=== PATIENT | male | born 1965 | race Caucasian/White ===

== ENCOUNTER 2021-10-05 00:30 | Day surgery (SDC) | payer OTHER, SELFPAY ==
[2021-09-24 12:09] VITALS: BMI 43.9
--- NOTE | 2021-10-03 12:55 | P.PNAN_ITS ---
Anes - Initial Pre Proc Eval Procedure: Operation Date: 10/05/21 11:30 Proposed Procedures p Screening Colonoscopy - Alex Wang MD Date/Time: 10/03/21 12:55 Surgeon: Alex Wang MD Pre Op Diagnosis: neoplasm screening Patient Data Age: 56 Gender: M Height: 1.73 m Weight: 131 kg Allergies Allergy/AdvReac Type Severity Reaction Status Date / Time No Known Allergies Allergy Verified 10/05/21 09:13 Home Medications Medication Instructions Recorded Confirmed Type irbesartan 300 mg tablet 300 mg PO DAILY #90 tablet 04/26/21 09/24/21 Rx atorvastatin 20 mg tablet 20 mg PO DAILY #90 tablet 07/27/21 09/24/21 Rx levothyroxine 50 mcg tablet 50 mcg PO DAILY #90 tablet 09/14/21 09/24/21 Rx Patient hx anesthesia problems: none Family hx anesthesia problems: none Results Review: All pre-operative results and documents have been reviewed as part of the pre-operative evaluation. [facility] Past Medical History Medical History (Updated 10/03/21 @ 12:55 by Stephan Gamboa DO) Essential (primary) hypertension Hyperlipidemia Hypothyroidism Family History Family History Mother Hypertension Family history of elevated blood lipids Sibling Hypertension Father Patient's father is in good health Social History Social History Smoking status: Former smoker Tobacco type: cigarettes Second hand tobacco smoke exposure: Yes Smoking end date: 07/18/04 Alcohol intake: current Drinks per week: 2 Substance use type: does not use Living arrangements: with family Spiritual care concerns: No Anes - Eval Final PreProcedure Day of Procedure 10/03/21 12:55 Patient weight: morbidly obese Heart: regular rate and rhythm Lungs: clear to auscultation and normal air movement Airway: Mallampati scale class II Neurological: alert and oriented Last oral intake: >/= 8 hours ASA classification: III Emergent: no Anesthetic plan: proceed Anesthesia type and monitoring: general GIVS and standard monitoring Results Review: All pre-operative results and documents have been reviewed as part of the pre-operative evaluation. Informed Consent: The patient's anesthetic plan and its attendant risks and benefits were discussed with the patient/family/POA. Questions were solicited and answers provided to the satisfaction of the patient/family/POA.
[2021-10-05 09:15] VITALS: BP 158/72; PULSE 67; RESP 18; TEMP 36.3; O2SAT 98
[2021-10-05] MEDS: LACTATED RINGERS 1,000 ML 150 ML IV CONT (09:16)
--- NOTE | 2021-10-05 09:34 | PM.HPGS ---
History of Present Illness History of Present Illness Consent: Risks, benefits, and alternatives have been discussed and questions answered. Patient agrees to proceed with procedure. Chief complaint: neoplasm screening Narrative: Darion Modi is a 56 year old male here for colonoscopy, last one with polyps in 2017. Review of Systems Constitutional: Constitutional: Denies headache(s) and Denies weakness Eyes: Eyes: Denies blurry vision ENT: Reports Normal hearing present, Denies headache(s) and Denies neck pain Cardiovascular: Cardiovascular: Denies chest pain and Denies dyspnea Respiratory: Respiratory: Denies dyspnea Gastrointestinal: Gastrointestinal: Reports no additional gastrointestinal complaints Genitourinary: Genitourinary: Denies dysuria Musculoskeletal: Musculoskeletal: Denies neck pain Integumentary/Breasts: Skin/Breast: Denies dry skin Neurologic: Reports Normal hearing present, Denies headache(s) and Denies weakness Psychiatric: Psychiatric: Denies anxiety Endocrine: Endocrine: Denies change in body appearance Hematologic/Lymphatic: Hematologic/Lymphatic: Denies easy bleeding Allergic/Immunologic: Allergic/Immunologic: Denies urticaria PMFSH Past Medical History Medical History (Updated 10/05/21 @ 09:34 by Alex Wang MD) Adenomatous colon polyp Essential (primary) hypertension Hyperlipidemia Hypothyroidism Family History Family History Mother Hypertension Family history of elevated blood lipids Sibling Hypertension Father Patient's father is in good health Social History Social History Smoking status: Former smoker Tobacco type: cigarettes Second hand tobacco smoke exposure: Yes Smoking end date: 07/18/04 Alcohol intake: current Drinks per week: 2 Substance use type: does not use Living arrangements: with family Spiritual care concerns: No Meds Home Medications and Allergies Home Medications Medication Instructions Recorded Confirmed Type irbesartan 300 mg tablet 300 mg PO DAILY #90 tablet 04/26/21 09/24/21 Rx atorvastatin 20 mg tablet 20 mg PO DAILY #90 tablet 07/27/21 09/24/21 Rx levothyroxine 50 mcg tablet 50 mcg PO DAILY #90 tablet 09/14/21 09/24/21 Rx Allergies Allergy/AdvReac Type Severity Reaction Status Date / Time No Known Allergies Allergy Verified 10/05/21 09:13 Vital Signs Vital Signs - 24 hr 10/05/21 09:15 Temperature 97.3 F L Pulse Rate 67 Respiratory Rate 18 Blood Pressure 158/72 H Pulse Oximetry 98 Exam Const: General: comfortable and no acute distress HENMT: General nose exam: Normal nares present Eyes: General: appearance normal, both eyes and all related structures Neck: Neck: no JVD Resp: Auscultation: clear to auscultation bilaterally Cardio: Rate: regular rate Rhythm: regular rhythm GI: Inspection: non-distended GI Palp: Yes Soft to palpation Skin: General skin exam: normal color Neuro: General: gait normal Speech: normal speech Extrem: General: normal to inspection Psych: Mental Status: mental status grossly normal Assessment and Plan Assessment and plan (1) Adenomatous colon polyp: Code(s): D12.6 - Benign neoplasm of colon, unspecified Status: Acute Assessment and Plan: colonoscopy
[2021-10-05 09:57] VITALS: BP 105/66; PULSE 59; RESP 24; O2SAT 94
[2021-10-05 10:07] VITALS: BP 128/78; PULSE 52; RESP 19; O2SAT 100
[2021-10-05 10:17] VITALS: BP 133/84; PULSE 50; RESP 18; O2SAT 100
== END 2021-10-05 10:30 | disposition home or self-care (01) ==
PROVIDERS: PCP Internal Medicine; Visit Provider Internal Medicine Gastroenterology
PROC: 0DJD8ZZ Inspection of Lower Intestinal Tract, Via Natural or Artificial Opening Endoscopic (ICD-10-PCS; CPT 45378; principal; 2021-10-05 11:30)
DX: Z12.11 Encounter for screening for malignant neoplasm of colon (principal); D12.0 Benign neoplasm of cecum; D12.3 Benign neoplasm of transverse colon; K57.30 Diverticulosis of large intestine without perforation or abscess without bleeding; K64.8 Other hemorrhoids; I10 Essential (primary) hypertension; E78.5 Hyperlipidemia, unspecified; E03.9 Hypothyroidism, unspecified; Z87.891 Personal history of nicotine dependence; E66.9 Obesity, unspecified; Z68.33 Body mass index [BMI] 33.0-33.9, adult
CPT/HCPCS: 45380; 45385; 88305; J2001; J2704; J7120

== ENCOUNTER 2022-08-09 09:51 | Outpatient (CLI) | payer OTHER, SELFPAY ==
--- NOTE | ~2022-08-09 | XR_ITS ---
Right foot Technique: Standing AP and lateral views were obtained. Clinical History: Ankylosing spondylitis Findings: No acute fracture or dislocation is seen. Osseous alignment is anatomic. Moderate osteoarth ritis of the first metatarsophalangeal joint noted. Soft tissues are unremarkable. Impression: Moderate osteoarthritis of the first metatarsophalangeal joint. Reviewed, dictated and finalized at location . RVISOR MACHINE SETTER Impression: Moderate osteoarthritis of the first metatarsophalangeal joint.
--- NOTE | ~2022-08-09 | XR_ITS ---
EXAMINATION:XR cervical spine 4-5V DATE: 08/09/2022 10:29 INDICATION: Ankylosing spondylitis of unspecified site since spine TECHNIQUE: AP, lateral, lateral swimmers and odontoid views of the cervical spine are provided. COMPARISON: None FINDINGS: Alignment is normal. Odontoid is intact. Normal atlantoaxial interval with mild osteoarthritis. Vert ebral body heights and disc heights appear relatively preserved however there are solidly bridging sy ndesmophytes extending from C2 through the visualized midthoracic spine along with osseous fusion acr oss many of the bilateral cervical facet joints consistent with provided history of ankylosing spondy litis. No evident fracture. Prevertebral soft tissues are normal. Visualized portions of the upper germán ngs are clear. IMPRESSION: 1. Solid bridging syndesmophytes extend from C2 through the visualized mid thoracic spine as well as fusion across multiple bilateral cervical facet joints consistent with provided history of ankylosing spondylitis. Reviewed, dictated and finalized at location B. STANT PROPERTY MANAGER IMPRESSION: 1. Solid bridging syndesmophytes extend from C2 through the visualized mid thor acic spine as well as fusion across multiple bilateral cervical facet joints co nsistent with provided history of ankylosing spondylitis.
--- NOTE | ~2022-08-09 | XR_ITS ---
EXAMINATION: XR lumbar spine min 4V, XR sacroiliac joints min 3V DATE: 08/09/2022 10:29 INDICATION: Ankylosing spondylitis of unspecified sites in the spine. TECHNIQUE: 1. Anteroposterior, lateral, and bilateral oblique views of the lumbar spine, and cone-down lateral v iew of the lumbosacral junction were obtained. 2. AP and left and right oblique views of the sacroiliac joints were obtained. COMPARISON: CT dated 02/08/2007 FINDINGS: Alignment is normal. Vertebral body heights are normal with multilevel fusion with solid bridging syn desmophytes extending from at least T12-S1. There is also solid ankylosis across the bilateral sacroi liac joints. There also appears to be osseous fusion across several of the lumbar facet joints and be tween some of the spinous processes. These findings have been present since 2006 and are consistent w ith provided history of ankylosing spondylitis. Lumbar disc spaces appear relatively preserved with m ild disc height loss at T10-T11, T11-T12, T12-L1 and L4-L5. Mild left and moderate right hip osteoart hritis. Osteitis pubis with chronic erosions at both sides of the pubic symphysis. IMPRESSION: 1. 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 2. Mild left and moderate right hip osteoarthritis. 3. Chronic osteitis pubis. Reviewed, dictated and finalized at location B. ITIZER IMPRESSION: 1. Chronic ankylosis of the lumbar spine and bilateral sacralized joints consis tent with provided history of ankylosing spondylitis. 2. Mild left and moderate right hip osteoarthritis. 3. Chronic osteitis pubis.
--- NOTE | ~2022-08-09 | XR_ITS ---
EXAMINATION: HAND-ANA MARIA ARTHRITIS 3+VIEWS DATE: 08/09/2022 10:29 INDICATION: Ankylosing spondylitis TECHNIQUE: Posteroanterior, lateral, and oblique views of the left and of the right hands as well as a ballcatchers view of both hands were obtained. COMPARISON: None. FINDINGS: Bone alignment is normal at the bilateral hands and wrists. No fractures. Mild to moderate polyarticu lar osteoarthritis characterized by nonuniform joint space narrowing and small marginal osteophytes w ith relatively symmetric pattern involving the bilateral distal radioulnar, triscaphe, first carpomet acarpal and multiple metacarpal and interphalangeal joints. This most severe at the bilateral third m etacarpophalangeal and bilateral first interphalangeal and second and third distal interphalangeal dmitriy ints. No erosions to suggest an inflammatory arthritis. IMPRESSION: 1. Symmetric distribution of typical pattern of mild to moderate polyarticular osteoarthritis at the bilateral hands and wrists. Reviewed, dictated and finalized at location B. N PIPEFITTER
--- NOTE | ~2022-08-09 | XR_ITS ---
Left foot Technique: Standing AP and lateral views were obtained. Clinical History: Ankylosing spondylitis Findings: No acute fracture or dislocation is seen. Osseous alignment is anatomic. Moderate osteoarth ritis of the first metatarsophalangeal joint noted. Soft tissues are unremarkable. Impression: Moderate osteoarthritis of the first metatarsophalangeal joint. Reviewed, dictated and finalized at location . OGEN PLANT OPERATIONS MANAGER Impression: Moderate osteoarthritis of the first metatarsophalangeal joint.
[2022-08-09 10:57] LABS: Hematocrit 45.5 % (42.0-52.0); Hemoglobin 15.8 g/dL (14.0-18.0); Mean Corpuscular HGB Conc 34.7 g/dl (32-36); Mean Corpuscular Hemoglobin 30.8 pg (26-34); Mean Corpuscular Volume 88.7 fl (80-100); Mean Platelet Volume 10.5 fl (7.4-10.4); Platelet Count Result 274 k/mm3 (150-375); Red Blood Count 5.13 M/mm3 (4.6-6.20); Red Cell Distribution Width 13.4 % (11.5-14.5); White Blood Count 8.5 K/mm3 (4.5-10.0)
[2022-08-09 11:13] LABS: Rheumatoid Factor < 8.6 IU/ML (<12)
[2022-08-09 11:19] LABS: Alanine Aminotransferase 30 U/L (6-50); Albumin Level 4.7 g/dL (3.5-5.1); Alkaline Phosphatase 88 U/L (38-126); Anion Gap 7 mmol/L (8-16); Aspartate Amino Transferase 31 U/L (17-59); Bilirubin,Total 1.4 mg/dL (0.2-1.3); Blood Urea Nitrogen 13 mg/dL (9-20); CRP 0.6 mg/dL (<1.0); Calcium 9.1 mg/dL (8.4-10.2); Carbon Dioxide 24 mmol/L (22-30); Chloride 104 mmol/L (98-107); Estimated Glomerular Filt Rate > 60; Glucose 106 mg/dL (65-110); Potassium 3.9 mmol/L (3.4-5.0); Sodium 135 mmol/L (137-145); Uric Acid 4.1 mg/dL (3.5-8.5)
[2022-08-09 11:38] LABS: Erythrocyte Sedimentation Rate 10 mm/hr (0-20)
[2022-08-09 12:32] LABS: Hepatitis B Surface Antigen Negative (Negative)
[2022-08-09 12:50] LABS: Hepatitis B Surface Anti Res Negative; Hepatitis C Virus Antibody Negative (Negative)
[2022-08-12 21:31] LABS: Anti Cyclic Citrullinated Pept <16 Units (<20)
[2022-08-12 22:31] LABS: ANCA Screen Negative (Negative); Myeloperoxidase Ab <1.0 AI (<1.0); Proteinase-3 Ab <1.0 AI (<1.0); S cerevisiae Ab (IgA) 4.4 U (<=20.0); S cerevisiae Ab (IgG) 5.9 U (<=20.0)
[2022-08-20 14:20] LABS: Reference Lab Test Result NEGATIVE
== END 2022-08-09 09:52 | disposition home or self-care (01) ==
PROVIDERS: PCP Internal Medicine; Visit Provider Internal Medicine
DX: M45.9 Ankylosing spondylitis of unspecified sites in spine (principal); M16.0 Bilateral primary osteoarthritis of hip; M19.071 Primary osteoarthritis, right ankle and foot; M19.072 Primary osteoarthritis, left ankle and foot
CPT/HCPCS: 36415; 72050; 72110; 72202; 73130; 73620; 80053; 84550; 85027; 85652; 86036; 86038; 86140; 86200; 86430; 86671; 86706; 86803; 87340

== ENCOUNTER 2022-10-11 15:45 | Outpatient (CLI) | payer OTHER, SELFPAY ==
--- NOTE | ~2022-10-11 | MR_ITS ---
MRI of the lumbar spine Clinical History: Back pain Technique: Axial T2-weighted images, and sagittal T1-weighted, T2-weighted, and T2 fat-sat images wer e acquired. Findings: There is no fracture or subluxation of the lumbar spine. Vertebral bodies maintain normal h eight and alignment. No suspicious bone marrow signal abnormality evident. At L1-L2, there is mild facet arthropathy. No disc bulge or herniation. No spinal canal stenosis or n eural foraminal narrowing. At L2-L3, there is facet arthropathy, but no disc bulge or herniation. No spinal canal stenosis or ne ural foraminal narrowing. At L3-L4, there is facet arthropathy, but no disc bulge or herniation. No spinal canal stenosis or ne ural foraminal narrowing. At L4-L5, there is facet arthropathy, but no disc bulge or herniation. No spinal canal stenosis or ne ural foraminal narrowing. At L5-S1, there is facet arthropathy, but no disc bulge or herniation. No spinal canal stenosis or ne ural foraminal narrowing. Paravertebral soft tissues are unremarkable. Questionable 1 cm solid right renal mass. Impression: Minimal degenerative change in the lumbar spine, as above. Questionable 1 cm solid right renal mass. Consider pre and postcontrast renal MR to confirm or exclud e solid renal mass. Reviewed, dictated and finalized at location M. Impression: Minimal degenerative change in the lumbar spine, as above. Questionable 1 cm solid right renal mass. Consider pre and postcontrast renal M R to confirm or exclude solid renal mass.
--- NOTE | ~2022-10-11 | MR_ITS ---
EXAMINATION: MR sacroiliac cade wo con DATE: 10/11/2022 16:57 INDICATION: Low back pain. Bilateral hip pain. TECHNIQUE: Magnetic resonance imaging (MRI) of the sacroiliac joints was performed without intravenou s contrast. COMPARISON: Sacroiliac joint radiographs 08/09/2022 FINDINGS: Bone alignment is normal. No fracture. There is ankylosis of the sacroiliac joints. Partially visuali zed is severe right hip osteoarthritis and moderate left hip osteoarthritis. There is moderate fatty atrophy of the erector spinae muscles bilaterally. IMPRESSION: 1. Ankylosis of the sacroiliac joints. 2. Severe right hip osteoarthritis and moderate left hip osteoarthritis. Reviewed, dictated and finalized at location A.
== END 2022-10-11 15:46 | disposition home or self-care (01) ==
PROVIDERS: PCP Internal Medicine; Visit Provider Internal Medicine
DX: M06.9 Rheumatoid arthritis, unspecified (principal); M16.0 Bilateral primary osteoarthritis of hip
CPT/HCPCS: 72158; 72197; A9577

== ENCOUNTER 2022-10-21 13:42 | Outpatient (CLI) | payer OTHER, SELFPAY ==
--- NOTE | ~2022-10-21 | MR_ITS ---
EXAMINATION: MR abdomen wo/w con DATE: 10/21/2022 14:50 INDICATION: Kidney mass. TECHNIQUE: Magnetic resonance imaging (MRI) of the abdomen was performed without and with 20 mL Multi Gary intravenous contrast. COMPARISON: Lumbar spine MRI 10/11/2022, CT abdomen and pelvis 02/08/2007 FINDINGS: The liver, spleen, gallbladder, pancreas, and adrenal glands are normal. There are cysts in the kidne ys measuring up to 3.4 cm on the right. There are hemorrhagic cysts in the kidneys measuring up to 7 mm. There is cortical thinning of left kidney. There are no dilated loops of bowel. There is divertic ulosis of the colon without evidence of diverticulitis. There are no pathologically enlarged lymph no justin. There is no free intraperitoneal fluid. IMPRESSION: 1. Benign cysts in the kidneys. Reviewed, dictated and finalized at location A.
== END 2022-10-21 13:43 | disposition home or self-care (01) ==
LOC: ANHIMG 13:47
PROVIDERS: PCP Internal Medicine; Visit Provider Internal Medicine
DX: N28.1 Cyst of kidney, acquired (principal)
CPT/HCPCS: 74183; A9577

== ENCOUNTER 2023-03-07 09:44 | Outpatient (CLI) | payer OTHER, SELFPAY ==
[2023-03-07 10:43] LABS: Hematocrit 41.8 % (42.0-52.0); Hemoglobin 14.1 g/dL (14.0-18.0); Mean Corpuscular HGB Conc 33.7 g/dl (32-36); Mean Corpuscular Hemoglobin 30.7 pg (26-34); Mean Corpuscular Volume 90.9 fl (80-100); Mean Platelet Volume 10.9 fl (7.4-10.4); Platelet Count Result 234 k/mm3 (150-375); Red Cell Distribution Width 13.2 % (11.5-14.5); White Blood Count 6.1 K/mm3 (4.5-10.0)
[2023-03-07 10:49] LABS: Appearance Urine Clear (Clear); Bacteria Urine None Seen /hpf; Bilirubin Urine Negative (Negative); Blood Urine Trace (Negative); Color Urine Yellow (Yellow); Glucose Urine UA Negative (Negative); Ketones Urine Negative (Negative); Leukocyte Esterase Ur Negative LEU/UL (Negative); Nitrate Urine Negative (Negative); Non Pathogenic Casts 0-2; Protein Urine Negative (Negative); RBC Urine 0-2 /hpf (0-2); Specific Grav Ur 1.025 (1.001-1.035); Squamous Epithelial Cell Urine None seen /hpf (Few); WBC Urine 0-5 /hpf; pH Urine 5.5 (5.0-9.0)
[2023-03-07 10:53] LABS: Cholesterol 133 mg/dL (0-200); HDL Direct 39 mg/dL; Triglycerides 86 mg/dL (<150)
[2023-03-07 10:59] LABS: Alanine Aminotransferase 25 U/L (6-50); Albumin Level 4.3 g/dL (3.5-5.1); Alkaline Phosphatase 79 U/L (38-126); Anion Gap 6 mmol/L (8-16); Aspartate Amino Transferase 30 U/L (17-59); Bilirubin,Total 1.5 mg/dL (0.2-1.3); Blood Urea Nitrogen 16 mg/dL (9-20); CRP < 0.5 mg/dL (<1.0); Calcium 8.6 mg/dL (8.4-10.2); Carbon Dioxide 25 mmol/L (22-30); Chloride 106 mmol/L (98-107); Estimated Glomerular Filt Rate > 60; Glucose 95 mg/dL (65-110); Potassium 3.9 mmol/L (3.4-5.0); Sodium 137 mmol/L (137-145)
[2023-03-07 11:03] LABS: Add Urine Microscopic? YES
[2023-03-07 11:05] LABS: LDL Cholesterol Direct 75 mg/dL
[2023-03-07 11:15] LABS: Free T4 Free Thyroxine 0.89 ng/mL (0.78-2.19)
[2023-03-07 11:16] LABS: Erythrocyte Sedimentation Rate 15 mm/hr (0-20)
[2023-03-07 11:26] LABS: Prostate Specific Antigen 3.9 ng/mL (< OR = 4.0)
[2023-03-07 12:02] LABS: Folic Acid 15.2 ng/mL (2.76->20)
== END 2023-03-07 09:45 | disposition home or self-care (01) ==
PROVIDERS: PCP Internal Medicine; Referring Provider Internal Medicine; Visit Provider Physician Assistant
DX: Z00.00 Encounter for general adult medical examination without abnormal findings (principal); M45.9 Ankylosing spondylitis of unspecified sites in spine; M19.90 Unspecified osteoarthritis, unspecified site; E03.9 Hypothyroidism, unspecified; Z12.5 Encounter for screening for malignant neoplasm of prostate
CPT/HCPCS: 36415; 80053; 80061; 81001; 82607; 82746; 84153; 84439; 84443; 85027; 85652; 86140; G0103

== ENCOUNTER 2023-04-18 07:19 | Outpatient (CLI) | payer OTHER, SELFPAY ==
[2023-04-18 16:20] LABS: Prostate Specific Antigen 0.6 ng/mL (< OR = 4.0)
== END 2023-04-18 07:20 | disposition home or self-care (01) ==
LOC: ANHLAB 07:19
PROVIDERS: PCP Internal Medicine; Visit Provider Physician Assistant
DX: R97.20 Elevated prostate specific antigen [PSA] (principal)
CPT/HCPCS: 36415; 84153

== ENCOUNTER 2023-11-01 08:00 | Emergency (ER) | payer OTHER, SELFPAY ==
[2023-11-01 08:11] VITALS: BP 158/95; PULSE 62; RESP 16; TEMP 36.8; O2SAT 100
--- NOTE | 2023-11-01 08:33 | ED.SKABFB ---
HPI - Skin/Abscess/Foreign Bdy General Chief complaint: Skin/Abscess/Foreign Body Stated complaint: RED SPOT ON LEG Time Seen by Provider: 11/01/23 08:36 Source: patient and RN notes reviewed Mode of arrival: ambulatory Limitations: no limitations History of Present Illness HPI narrative: 58-year-old male presents with concern for red spot on his right thigh. He reports he noticed it this morning in the shower. Reports it feels tight and slightly tender. Reports it is not itchy. He denies any known injury. Denies any known insect bite. He denies general malaise, fever, body aches, chills, sweats. Reports he was working in a basement this weekend. complaint: discoloration Related Data Allergies Allergy/AdvReac Type Severity Reaction Status Date / Time No Known Allergies Allergy Verified 11/01/23 08:21 Review of Systems Review of Systems: CONSTITUTIONAL: Denies malaise, chills, sweats, or fever. EYES: Denies redness, or discharge. ENT: Denies rhinorrhea, congestion, swollen lips, swollen tongue CARDIOVASCULAR: Denies chest pain, palpitations, or edema. RESPIRATORY: Denies cough or dyspnea. GASTROINTESTINAL: Denies abdominal pain, nausea, vomiting SKIN: Reports redness to the right thigh. MUSCULOSKELETAL: Denies joint pain or myalgia. NEUROLOGIC: Denies headache. All systems reviewed & are unremarkable except as noted in HPI and below PMFSH Past Medical History Medical History Adenomatous colon polyp Essential (primary) hypertension Hyperlipidemia Hypothyroidism Surgical History Surgical History No pertinent past surgical history Family History Family History Mother Hypertension Family history of elevated blood lipids Sibling Hypertension Father Patient's father is in good health Social History Social History Smoking status: Former smoker Tobacco type: cigarettes Second hand tobacco smoke exposure: Yes Smoking end date: 07/18/04 Alcohol intake: current Drinks per week: 2 Substance use type: does not use Lack of Transportation: No Lack of Food: Never True Current Housing: I Have Housing Concerned About Future Housing: No Difficulty Paying Gas/Electric Bills: No Difficulty Paying for Meds: No Currently Unemployed: No Education: Decline to Answer Difficulty w/ Childcare or Family Care: No Living arrangements: with family Occupation/Education: occupation Gender identity (if verbalized by the patient): Male Spiritual care concerns: No Comments At time of signature, agree with nursing past medical, surgical, social and family history. There is no relevant family history pertinent to the presenting complaint Exam Narrative: GENERAL: Well-appearing, well-nourished, and in no acute distress. HEAD: Normocephalic, atraumatic. EYES: PERRLA, conjunctivae clear, and EOMI. ENT: Mucous membranes moist. Oropharynx without edema, erythema or lesions. NECK: Supple. No lymphadenopathy CHEST: Clear to auscultation. No respiratory distress. HEART: Regular rate and rhythm. SKIN: Warm, dry. 7 x 6 cm a flat patch of erythematous macules, slightly warm a without any central scab or fluctuation noted, slightly tender. NEURO: Alert and oriented x3. PSYCH: Normal mood and affect Course Course Emergency Course: Patient is aware of diagnosis, understands and agrees to treatment plan. Anticipatory guidance given. Patient agrees to follow-up as directed and is aware of reasons to seek care at the emergency department. Portions of this record may have been created with voice recognition software Level of Care: Express Care Visit Vital Signs Vital signs: Vital Signs Temperature 98.2 F 11/01/23 08:11 Pulse Rate 62 11/01/23 08:11 Respiratory Rate
== END 2023-11-01 08:47 | disposition home or self-care (01) ==
PROVIDERS: Emergency Provider Nurse Practitioner; PCP Internal Medicine
DX: S70.361A Insect bite (nonvenomous), right thigh, initial encounter (principal); W57.XXXA Bitten or stung by nonvenomous insect and other nonvenomous arthropods, initial encounter; I10 Essential (primary) hypertension; E78.5 Hyperlipidemia, unspecified; E03.9 Hypothyroidism, unspecified; Z87.891 Personal history of nicotine dependence
CPT/HCPCS: 99213; G0463

== ENCOUNTER 2024-05-09 15:35 | Outpatient (CLI) | payer OTHER, SELFPAY ==
--- NOTE | 2024-05-09 15:51 | ECG_ITS ---
Test Date: 2024-05-09 16:00:46 Measurements Intervals [place] Rate: 61 P: 35 SD: 165 QRS: 35 QRSD: 102 T: 12 QT: 387 QTc: 390 Interpretive Statements SINUS RHYTHM INFERIOR MYOCARDIAL INFARCTION , PROBABLY OLD [40+ ms Q WAVE AND/OR ST/T ABNORMALITY IN II/aVF] No previous ECG available for comparison Electronically Signed On 05-10-2024 09:38:16 CDT by Marimar Grubbs M.D.
[2024-05-09 16:09] LABS: Basophils Absolute Auto 0.1 K/mm3 (0.0-0.1); Basophils Percent Auto 0.6 % (0.2-1.2); Eosinophils Absolute Auto 0.2 K/mm3 (0-0.3); Eosinophils Percent Auto 1.9 % (0-4.4); Hematocrit 45.8 % (42.0-52.0); Hemoglobin 14.8 g/dL (14.0-18.0); Immature Granulocyte Absolute 0.02 K/mm3 (0.00-0.031); Immature Granulocyte Percent A 0.2 % (0-0.5); Lymphocytes Absolute Auto 2.41 K/mm3 (0.9-3.2); Lymphocytes Percent Auto 29.2 % (18.3-44.2); Mean Corpuscular HGB Conc 32.3 g/dl (32-36); Mean Corpuscular Hemoglobin 29.8 pg (26-34); Mean Corpuscular Volume 92.3 fl (80-100); Mean Platelet Volume 10.8 fl (7.4-10.4); Monocytes Absolute Auto 0.7 K/mm3 (0.1-0.6); Monocytes Percent Auto 8.5 % (2.6-8.5); Neutrophils Absolute Auto 4.9 K/mm3 (1.3-6.7); Neutrophils Percent Auto 59.6 % (45.5-73.1); Platelet Count Result 223 k/mm3 (150-375); Red Blood Count 4.96 M/mm3 (4.6-6.20); Red Cell Distribution Width 13.7 % (11.5-14.5); White Blood Count 8.3 K/mm3 (4.5-10.0)
[2024-05-09 16:19] LABS: Anion Gap 9 mmol/L (4-12); Blood Urea Nitrogen 25 mg/dL (9-20); Calcium 9.6 mg/dL (8.4-10.2); Carbon Dioxide 27 mmol/L (22-30); Chloride 104 mmol/L (98-107); Estimated Glomerular Filt Rate > 60; Glucose 96 mg/dL (65-110); Potassium 4.1 mmol/L (3.4-5.0); Sodium 140 mmol/L (137-145)
[2024-05-09 16:44] LABS: Add Urine Microscopic? YES; Appearance Urine Cloudy (Clear); Bacteria Urine None Seen /hpf; Bilirubin Urine Negative (Negative); Blood Urine Negative (Negative); Color Urine Yellow (Yellow); Glucose Urine UA Negative (Negative); Ketones Urine Negative (Negative); Leukocyte Esterase Ur Negative LEU/UL (Negative); Nitrate Urine Negative (Negative); Non Pathogenic Casts 0-2; Protein Urine Trace mg/dL (Negative); Specific Grav Ur 1.023 (1.001-1.035); Squamous Epithelial Cell Urine None Seen /hpf (Few); WBC Urine 0-5 /hpf (0-3); pH Urine 7.5 (5.0-9.0)
== END 2024-05-09 15:36 | disposition home or self-care (01) ==
LOC: ANHLAB 15:37
PROVIDERS: PCP Internal Medicine; Visit Provider Nurse Practitioner Family
DX: E03.9 Hypothyroidism, unspecified (principal); I10 Essential (primary) hypertension; M16.9 Osteoarthritis of hip, unspecified; R94.31 Abnormal electrocardiogram [ECG] [EKG]
CPT/HCPCS: 36415; 80048; 81001; 85025; 93005

== ENCOUNTER 2024-05-21 09:39 | Outpatient (CLI) | payer OTHER, SELFPAY ==
--- NOTE | ~2024-05-21 | NM_ITS ---
EXAMINATION: NM dougie stress w perfusion DATE: 05/21/2024 12:08 INDICATION: Abnormal electrocardiogram. TECHNIQUE: Rest images were obtained following intravenous administration of 9.44 mCi Tc99m tetrofosm in (Myoview). The patient was infused intravenously with Lexiscan (regadenoson). Then, 29 mCi Tc99m t etrofosmin (Myoview) was administered intravenously, and stress images were obtained. Data was recons tructed into short axis and horizontal and vertical long axis SPECT images. Gated SPECT images were a lso obtained. COMPARISON: None. FINDINGS: There is a small, mild, fixed perfusion defect involving apical lateral and mid inferolater al segments of left ventricle, consistent with ischemia. No fixed component to suggest infarct. Ther e is no segmental wall motion abnormality. Left ventricular ejection fraction measures 56%. IMPRESSION: 1. Small area of mild ischemia involving apical lateral and mid inferolateral segments of left ventri gina. 2. Normal left ventricular ejection fraction measuring 56%. Reviewed, dictated and finalized at location A. IMPRESSION: 1. Small area of mild ischemia involving apical lateral and mid inferolateral s egments of left ventricle. 2. Normal left ventricular ejection fraction measuring 56%.
--- NOTE | 2024-05-21 10:40 | EST_ITS ---
Patient Info Name: Darion Modi Age: 59 years : 1965 Gender: Male Ht: 68 in Wt: 213 lbs BSA: 2.18 m2 HR: 51 bpm BP: 148 / 89 mmHg Exam Date: 05/21/2024 10:51 AM Exam Location: Echo Lab Patient Status: Outpatient Admit Date: 05/21/2024 Staff Ordering Physician: Aníbal Wilburn DO Attending Provider: Aníbal Wilburn DO Exercise Technologist: Nellie Correia RDCS Exercise Physician: Paul Gonzalez DO Exam Type: CA stress dougie w NM Study Info A regadenoson stress test was performed. Summary 1. 1. Negative lexiscan stress test for ischemic ST changes by ECG criteria. 2. 2. Baseline hypertension. 3. 3. Nuclear scan to follow and will be reported separately. Please correlate with it. 4. 4. Patient informed of the above results. Protocol: Lexiscan Stress ECG Details Stage: REST Duration (min): 3 min : 50 sec HR (bpm): 50 SBP (mmHg): 148 DBP (mmHg): 89 Stage: REST Duration (min): 16 min : 34 sec HR (bpm): 57 SBP (mmHg): 148 DBP (mmHg): 89 Stage: STAGE 1 Duration (min): 1 min : 0 sec HR (bpm): 80 SBP (mmHg): 177 DBP (mmHg): 102 Stage: RECOVERY Duration (min): 1 min : 0 sec HR (bpm): 73 SBP (mmHg): 177 DBP (mmHg): 102 Stage: RECOVERY Duration (min): 2 min : 0 sec HR (bpm): 70 SBP (mmHg): 177 DBP (mmHg): 102 Stage: RECOVERY Duration (min): 3 min : 0 sec HR (bpm): 67 SBP (mmHg): 177 DBP (mmHg): 102 Stage: RECOVERY Duration (min): 4 min : 0 sec HR (bpm): 62 SBP (mmHg): 176 DBP (mmHg): 94 Stage: RECOVERY Duration (min): 5 min : 0 sec HR (bpm): 65 SBP (mmHg): 172 DBP (mmHg): 96 Stage: RECOVERY Duration (min): 5 min : 19 sec HR (bpm): 64 SBP (mmHg): 172 DBP (mmHg): 96 Rest HR: 57 bpm Peak HR: 83 bpm Rest Sys BP: 148 mmHg Peak Sys BP: 177 mmHg Max Pred HR: 161 bpm % Max Pred HR: 52 % Target HR: 137 bpm Max RPP: 14,691 bpm*mmHg Termination Reason: Completed protocol Cardiac Symptoms: Shortness of breath Total Time: 1 min : 0 sec Rest [place] BP: 89 mmHg Peak [place] BP: 102 mmHg Total Dose: 0.4 mg Resting ECG Sinus bradycardia. Stress ECG No ST changes. Arrhythmias None. Report Signatures
== END 2024-05-21 09:40 | disposition home or self-care (01) ==
LOC: ANHCARD 09:43
PROVIDERS: PCP Internal Medicine; Visit Provider Internal Medicine
DX: R94.31 Abnormal electrocardiogram [ECG] [EKG] (principal)
CPT/HCPCS: 78452; 93017; A9502; J2785

== ENCOUNTER 2024-11-28 07:15 | Outpatient (RCR) | payer OTHER, SELFPAY ==
[2024-09-25 15:37] VITALS: PULSE 83
== END 2024-11-28 08:30 | disposition home or self-care (01) ==
LOC: ANHCPREHAB 07:15
PROVIDERS: PCP Internal Medicine; Visit Provider Internal Medicine Cardiovascular Disease
DX: Z98.61 Coronary angioplasty status (principal)
CPT/HCPCS: 93798

== ENCOUNTER 2025-01-31 09:00 | Outpatient (RCR) | payer OTHER, SELFPAY ==
--- NOTE | 2024-12-07 12:30 | OPREHPOC ---
Outpatient Therapy Plan of Care This is a Multidisciplinary Plan of Care that may contain components documented by all disciplines (PT, OT, and ST.) PT Problem 1 PT Problem #1 Knowledge Deficit PT Goal 1 Goal / Goal Update Independent with HEP Target Visit 4 PT Goal 2 Goal / Goal Update Report no pain greater than 2/10 for 2 consecutive weeks Target Visit 10 PT Problem 2 PT Problem #2 Impaired Range of Motion PT Goal 1 Goal / Goal Update 1. Improve R hip abduction motion to 40 degrees 2. Improve R hip flexion to 90 degrees Target Visit 10 PT Problem 3 PT Problem #3 Impaired Strength PT Goal 1 Goal / Goal Update 1. Improve R hip flexion to 4/5 to improve foot clearance with gait 2. Improve R hip abduction strength to 4/5 to improve lateral stability with gait and ADLs Target Visit 10 PT Problem 4 PT Problem #4 Impaired Gait PT Goal 1 Goal / Goal Update Patient will ambulate with independence and kedar stride Target Visit 10
--- NOTE | 2024-12-07 12:30 | PTOPEVAL1 ---
Assessment and note entered by Cooper Vanegas, PT Evaluation Information Assessment Status Evaluation Diagnosis M16.11, S/P Left HAYDEE ICD-10 Condition Codes (PT) Pain in right hip M25.551 Onset 11/29/24 Subjective Information Reports that he is still having some of the pain that he had pre op with hip rotation and flexion butt is getting better. He is not currently driving but was prior. He was unable to full weight bear prior to surgery and now feels he can. Was having severe pain for well over a year. He was ambulating independently prior to surgery but he is now using a quad cane this date. He has a history of ankylosing spondylitis. Reported Pain Level Pain Score 2: Self Report Assessment PT Clinical Summary Patient presents with gait deficits, weakness, and poor hip ROM following total hip arthroplasty. Patient guarded with motion art this time but improved with exercise. Will benefit from skilled therapy to address these deficits to progress to independent fluid functional motion. Plan of Care Interventions Gait Training,Manual Therapy,Neuro Re-education, Therapeutic Activities,Therapeutic Exercise PT Services Indicated Yes Treatment Frequency and 2x/week for 10 visits Duration These treatments will address the objective and functional deficits as defined above. The patient will be advanced safely and appropriately in order for the patient to progress towards his/her prior level of function. Additional exercises will be introduced and as well as a comprehensive home exercise program upon discharge, if needed, ?to ensure carryover of functional gains achieved in the clinic. This treatment plan has been reviewed and agreement upon by the patient.
--- NOTE | 2024-12-25 15:05 | OTOPEVAL1 ---
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 Left worse than right. He is right handed. 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 Difficulties with work tasks due to repetitive pinching and using tools. He states he has been off work since Aug due to vacation, heart stent surgery, and hip replacement. He states his hand pain on a daily basis is 3-4/10 with ADLs. He also reports a long history of carpal tunnel syndrome. He has custom wrist orthotics that he wears at night. 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 He presents with functional ROM, however pain with ROM of the thumbs as well as pain with functional gripping and pinching tasks. Fabricated a custom left thumb spica to support the 1st CMC and began education on joint protection techniques. Issued active ROM of the wrists and thumbs. Continued follow up indicated for use of modalities, manual therapy, right side orthosis, continued joint protection education, therapeutic exercise, and HEP progression to facilitate reduced pain and improved functional use of bilateral hands. Plan of Care Interventions Therapeutic Exercise,Manual Therapy,Therapeutic Activities,Hot Pack/Cold Pack,Check Out for Orthotic/Prosthetic,Ultrasound,Paraffin OT Services Indicated Yes Treatment Frequency and 1x/week for 6 visits Duration These treatments will address the objective and functional deficits as defined above. The patient will be advanced safely and appropriately in order for the patient to progress towards his/her prior level of function. Additional exercises will be introduced and as well as a comprehensive home exercise program upon discharge, if needed, ?to ensure carryover of functional gains achieved in the clinic. This treatment plan has been reviewed and agreement upon by the patient.
--- NOTE | 2024-12-25 15:05 | OPREHPOC ---
Outpatient Therapy Plan of Care This is a Multidisciplinary Plan of Care that may contain components documented by all disciplines (PT, OT, and ST.) PT Problem 1 PT Problem #1 Knowledge Deficit PT Goal 1 Goal / Goal Update Independent with HEP Target Visit 4 PT Goal 2 Goal / Goal Update Report no pain greater than 2/10 for 2 consecutive weeks Target Visit 10 PT Problem 2 PT Problem #2 Impaired Range of Motion PT Goal 1 Goal / Goal Update 1. Improve R hip abduction motion to 40 degrees 2. Improve R hip flexion to 90 degrees Target Visit 10 PT Problem 3 PT Problem #3 Impaired Strength PT Goal 1 Goal / Goal Update 1. Improve R hip flexion to 4/5 to improve foot clearance with gait 2. Improve R hip abduction strength to 4/5 to improve lateral stability with gait and ADLs Target Visit 10 PT Problem 4 PT Problem #4 Impaired Gait PT Goal 1 Goal / Goal Update Patient will ambulate with independence and kedar stride Target Visit 10 OT Problem 1 OT Problem #1 Knowledge Deficit OT Goal 1 Goal / Goal Update 1. Patient to be independent with instructed materials. Target Visit 6 OT Problem 2 OT Problem #2 Pain OT Goal 1 Goal / Goal Update 1. Patient to report reduced bilateral hand pain as measured by reporting decreased pain to 0/10 at rest. 2. Patient to report reduced bilateral hand pain as measured by reporting decreased pain to 2/10 or less with ADLs. Target Visit 6 OT Problem 3 OT Problem #3 Impaired Strength OT Goal 1 Goal / Goal Update 1. 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 Target Visit 6
--- NOTE | 2025-01-08 08:56 | OPREHPOC ---
Outpatient Therapy Plan of Care This is a Multidisciplinary Plan of Care that may contain components documented by all disciplines (PT, OT, and ST.) PT Problem 1 PT Problem #1 Knowledge Deficit PT Goal 1 Goal / Goal Update Independent with HEP Target Visit 4 PT Goal 2 Goal / Goal Update Report no pain greater than 2/10 for 2 consecutive weeks Target Visit 10 Progress Met PT Problem 2 PT Problem #2 Impaired Range of Motion PT Goal 1 Goal / Goal Update 1. Improve R hip abduction motion to 40 degrees 2. Improve R hip flexion to 90 degrees Target Visit 10 Progress Met PT Problem 3 PT Problem #3 Impaired Strength PT Goal 1 Goal / Goal Update 1. Improve R hip flexion to 4/5 to improve foot clearance with gait 2. Improve R hip abduction strength to 4/5 to improve lateral stability with gait and ADLs Target Visit 10 Progress Met PT Problem 4 PT Problem #4 Impaired Gait PT Goal 1 Goal / Goal Update Patient will ambulate with independence and even stride Target Visit 10 Progress Met OT Problem 1 OT Problem #1 Knowledge Deficit OT Goal 1 Goal / Goal Update 1. Patient to be independent with instructed materials. Target Visit 6 OT Problem 2 OT Problem #2 Pain OT Goal 1 Goal / Goal Update 1. Patient to report reduced bilateral hand pain as measured by reporting decreased pain to 0/10 at rest. 2. Patient to report reduced bilateral hand pain as measured by reporting decreased pain to 2/10 or less with ADLs. Target Visit 6 OT Problem 3 OT Problem #3 Impaired Strength OT Goal 1 Goal / Goal Update 1. 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 Target Visit 6
--- NOTE | 2025-01-08 08:56 | PTOPDC ---
Assessment and note entered by Cooper Vanegas, PT Evaluation Information Assessment Status Discharge Diagnosis M16.11, S/P Left HAYDEE ICD-10 Condition Codes (PT) Pain in right hip M25.551 Onset 11/29/24 Subjective Information Reports that overall he is doing much better. He never noted much pain in his left hip before but now that the right is doing better he is noticing some in the left hip. Feels that he is comfortable with most of the exercises and needs to work on his respiratory endurance. He did have some abnormal labs last week and will retake them. Reported Pain Level Pain Score 0: Self Report Assessment PT Clinical Summary Patient has met all goals for therapy at this time . Motion is exceptionally improved as well as functional gait and balance. Patient will continue with independent strengthening and is suitable for discharge. Plan of Care PT Services Indicated Yes
--- NOTE | 2025-01-31 09:45 | OTOPDC ---
Assessment and note entered by Ernesto Bardales, OTR/Richelle, [facility] OT D/C 01/31/25 Assessment Status Discharge Diagnosis OA of 1st CMC Subjective Information Patient reports daily bilateral thumb pain. Left thumb 2-3/10 and right thumb 1-2/10 on a daily basis. He reports his pain is activity dependent and can get up higher if he's used his hands. He reports he can't do anything with the custom orthotics on and does not wear them when activity. He reports he thinks nothing will help his thumb pain and he will have surgery in the future. He does report that the exercises have helped his carpal tunnel symptoms. 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 2 custom orthoses were fabricated to support the bilateral CMCs. He is completing ROM and gentle strengthening. He has been educated on joint protection principles. He reports he receives temporary relief from therapy. Discharging today with patient independent with instructed materials. Plan of Care OT Services Indicated No
== END 2025-01-31 12:03 | disposition home or self-care (01) ==
LOC: ANHGOSHOT 09:00
PROVIDERS: PCP Internal Medicine
DX: M16.11 Unilateral primary osteoarthritis, right hip (principal)
CPT/HCPCS: 97018; 97110; 97112; 97116; 97140; 97161; 97165; 97530; L3913; L3921

== ENCOUNTER 2025-04-04 04:45 | Emergency (ER) | payer OTHER, SELFPAY ==
[2025-04-04] VITALS (11 sets, daily range): BP systolic 144–189; BP diastolic 80–92; PULSE 55–92; RESP 13–23; TEMP 37.1; O2SAT 95–99
--- NOTE | ~2025-04-04 | XR_ITS ---
Examination: XR chest 2V Clinical History: CHEST PAIN Comparison: None Technique: PA and Lateral Findings: Cardiomediastinal silhouette normal size and configuration. Lungs clear. No acute bony abnormality. IMPRESSION: 1. No acute cardiopulmonary findings. Reviewed, dictated and finalized at location R.
--- NOTE | ~2025-04-04 | CT_ITS ---
CTA CHEST CLINICAL HISTORY: CP/SOB, mildly elevated dimer . COMPARISON: Chest x-ray today TECHNIQUE: Helical CTA performed from thoracic inlet to upper abdomen IV contrast information not listed in PACS Coronal, sagittal reformats. Multiplanar MIPS CT images acquired with automatic exposure control for dose reduction DLP: 1119 mGy-cm FINDINGS: Pulmonary arteries: No PE. Thoracic Aorta: No dissection or aneurysm. Heart/pericardium: Cardiomegaly. Coronary artery calcifications. RV/LV ratio: Normal. Lungs/Pleura: Clear. Tracheobronchial tree: Mucoid impaction superior segment RLL. Nodes: No enlarged nodes. Bones: No acute bony abnormality. Soft tissues: Unremarkable. Visualized upper abdomen: Hepatic steatosis. IMPRESSION: 1. No PE or other acute cardiopulmonary findings. Reviewed, dictated and finalized at location R.
--- NOTE | 2025-04-04 04:48 | ECG_ITS ---
Test Date: 2025-04-04 04:56:16 Measurements Intervals [place] Rate: 83 P: 44 MA: 163 QRS: 33 QRSD: 100 T: 9 QT: 358 QTc: 422 Interpretive Statements SINUS RHYTHM PROBABLE INFERIOR MYOCARDIAL INFARCTION , PROBABLY OLD [35 ms Q WAVE IN II/aVF] ABNORMAL ECG Compared to ECG 05/09/2024 16:00:46 No significant changes Electronically Signed On 04-04-2025 08:01:01 CDT by Usman Prado M.D.
[2025-04-04] MEDS: ASPIRIN 81 MG CHEWABLE TABLET 324 MG PO (05:00)
[2025-04-04 05:06] LABS: Hematocrit 44.6 % (42.0-52.0); Hemoglobin 15.0 g/dL (14.0-18.0); Immature Granulocyte Percent A 0.3 % (0-0.5); Lymphocytes Absolute Auto 1.85 K/mm3 (0.9-3.2); Mean Corpuscular HGB Conc 33.6 g/dl (32-36); Mean Corpuscular Hemoglobin 30.2 pg (26-34); Mean Corpuscular Volume 89.9 fl (80-100); Nucleated Red Blood Cells Absolute Auto 0.000 K/mm3 (0.0-0.012); Nucleated Red Blood Cells Perc 0.0 % (0.0-0.2); Platelet Count Result 250 k/mm3 (150-375); Red Blood Count 4.96 M/mm3 (4.6-6.20); White Blood Count 8.7 K/mm3 (4.5-10.0)
[2025-04-04 05:17] LABS: Alanine Aminotransferase 34 U/L (6-50); Albumin Level 4.7 g/dL (3.5-5.1); Alkaline Phosphatase 97 U/L (38-126); Anion Gap 12 mmol/L (4-12); Aspartate Amino Transferase 39 U/L (17-59); Bilirubin,Total 1.4 mg/dL (0.2-1.3); Blood Urea Nitrogen 20 mg/dL (9-20); Calcium 9.1 mg/dL (8.4-10.2); Carbon Dioxide 22 mmol/L (22-30); Chloride 105 mmol/L (98-107); Estimated CRCL calculation 116 ml/min; Estimated Glomerular Filt Rate > 60; Glucose 162 mg/dL (65-110); Lipase 424 U/L (23-300); Potassium 3.7 mmol/L (3.4-5.0); Sodium 139 mmol/L (137-145); Total Protein 7.8 g/dL (6.3-8.2)
[2025-04-04 05:22] LABS: INR 1.1; Prothrombin Time 14.3 Seconds (11.1-14.7)
[2025-04-04 05:23] LABS: Partial Thromboplastin Time 26.1 Seconds (22.3-36.8)
[2025-04-04 05:28] LABS: Troponin I < 0.012 ng/mL (0.000-0.034)
--- NOTE | 2025-04-04 06:10 | ED_ITS ---
HPI - Chest Pain General Chief Complaint: Chest Pain <Cris Jones MD - Last Filed: 04/04/25 08:13> Stated Complaint: chest heaviness <Cris Jones MD - Last Filed: 04/04/25 08:13> Time Seen by Provider: 04/04/25 05:41 <Cris Jones MD - Last Filed: 04/04/25 08:13> Source: patient and family <Cris Jones MD - Last Filed: 04/04/25 08:13> Mode of arrival: ambulatory <Cris Jones MD - Last Filed: 04/04/25 08:13> Limitations: no limitations <Cris Jones MD - Last Filed: 04/04/25 08:13> History of Present Illness HPI narrative: Patient presents to the emergency department with report of shortness of breath and chest pain. He states that shortness of breath started yesterday and the chest pain this morning at 3:30 a.m. while he was getting in the shower. He is status post 1 stent that was placed in August of 2024 through [facility] by Dr. Little but his chief general pediatric clinic now is Dr Gonzalez. He had not had an NJ, just that he failed a pre-operative clearance EKG and stress test for him to undergo a right hip replacement. Pain described as a pressure, heaviness. He is on Brilinta which he states he has been taking. Occasionally he will miss a dose but he is generally compliant. In general he states he has been having trouble sleeping, rhinorrhea , and other issues recently like a cough productive of phlegm. Was having bilateral edema although now it seems on his objective exam the right is greater than left. Denies a history of CHF. No fevers, chills, nausea, or vomiting. History of anklysing spondylosis. Cardiac risk factors HTN: Yes (his amlodipine was cut from 10mg to 5mg due to lower extremity swelling) HLD: Yes DM: No Obese: Yes Smoker: No (former, quit many years ago) Personal history NJ/TIA/CVA / CAD: Yes Fam Hx NJ in first degree relative <65yo: 0 <Cris Jones MD - Last Filed: 04/04/25 08:13> Related Data Home Medications: Home Medications ?Medication ?Instructions ?Recorded ?Confirmed ?Last Taken ?Type aspirin 81 mg tablet,delayed 81 mg PO DAILY 07/27/24 0 02/25/25 Unknown History release ticagrelor 90 mg tablet 90 mg PO Q12H 10/15/2402/25 Unknown History amlodipine 10 mg tablet 5 mg PO DAILY 02/25/2502/25 Unknown History <Cris Jones MD - Last Filed: 04/04/25 08:13> Allergies/Adverse Reactions: Allergies Allergy/AdvReac Type Severity Reaction Status Date / Time No Known Allergies Allergy Verified 02/25/25 09:00 <Cris Jones MD - Last Filed: 04/04/25 08:13> FOR[facility] Past Medical History Medical History: Medical History (Updated 04/04/25 @ 07:28 by Cris Jones MD) CAD (coronary artery disease) Traumatic pneumothorax 13yo Uses hearing aid Hard of hearing Ankylosing spondylitis Arthritis Cellulitis Degenerative joint disease (DJD) of hip Right hip pain Adenomatous colon polyp Hyperlipidemia Essential (primary) hypertension Hypothyroidism <Cris Jones MD - Last Filed: 04/04/25 08:13> Surgical History Surgical History: Surgical History (Updated 04/04/25 @ 07:17 by Cris Jones MD) H/O heart artery stent History of right hip replacement History of ear surgery 2007 History of hand surgery 2007 History of toe surgery History of shoulder surgery 2000 Hx of tonsillectomy 1971 History of hernia repair 2006 <Cris Jones MD - Last Filed: 04/04/25 08:13> Family History Family History: Family History Mother Hypertension Family history of elevated blood lipids Sibling Hypertension Father Cerebrovascular accident, Onset Age: 79 H/O heart artery stent Unknown Cerebrovascular accident <rCis Jones MD - Last Filed: 04/04/25 08:13> Social History Social History: Social History Smoking packs per day: 1 Smoking cigarettes per day: 20.0 Years smoked: 10 Smoking pack-years: 10.00 Smoking status: Former smoker Tobacco type: cigarettes Second hand tobacco smoke exposure: Yes Smoking end date: 07/18/04 Alcohol intake: current Drinks per week: 2 Substance use: never Substance use type: does not use Do You Feel Safe in your Home?: Yes Lack of Transportation: No Lack of Food: Never True Current Housing: I Have Housing Concerned About Future Housing: No Difficulty Paying Gas/Electric Bills: No Difficulty Paying for Meds: No Currently Unemployed: No Education: Decline to Answer Difficulty w/ Childcare or Family Care: No Living arrangements: with family Occupation/Education: occupation Additional occupation/education comments: [employer] Gender identity (if verbalized by the patient): Male Spiritual care concerns: No <Cris Jones MD - Last Filed: 04/04/25 08:13> Exam 2 Narrative: GENERAL: Well-appearing, well-nourished, appears uncomfortable HEAD: Normocephalic, atraumatic. EYES: Non injected, non icteric ENT: Nares clear, no rhinorrhea or epistaxis. Gross auditory acuity intact. NECK: Supple. No meningismus. CHEST: Speaking in full sentences. No respiratory distress. Diminished lungs bilaterally HEART: Regular rate and rhythm. . ABDOMEN: Obese but Soft, nondistended. EXTREMITIES: Normal range of motion. 1-2+ bilateral lower extremity pitting edema. SKIN: Warm, dry, no rash. NEURO: No focal deficits. Alert and oriented. Answering questions. Following commands. Normal speech without aphasia or dysarthria. PSYCH: Normal mood and affect. <Cris Jones MD - Last Filed: 04/04/25 08:13> Course Vital Signs Vital signs: Vital Signs Temperature 98.7 F 04/04/25 04:52 Pulse Rate 88 04/04/25 04:52 Respiratory Rate 22 H 04/04/25 04:52 Blood Pressure 189/92 H 04/04/25 04:52 Pulse Oximetry 99 04/04/25 04:52 Temperature 98.7 F 04/04/25 04:52 Pulse Rate 55 L 04/04/25 09:01 Respiratory Rate 14 04/04/25 09:01 Blood Pressure 145/87 H 04/04/25 09:01 Pulse Oximetry 98 04/04/25 09:01 Oxygen Delivery Room Air 04/04/25 04:57 <Cris Jones MD - Last Filed: 04/04/25 08:13> Vital Signs Temperature 98.7 F 04/04/25 04:52 Pulse Rate 88 04/04/25 04:52 Respiratory Rate 22 H 04/04/25 04:52 Blood Pressure 189/92 H 04/04/25 04:52 Pulse Oximetry 99 04/04/25 04:52 Temperature 98.7 F 04/04/25 04:52 Pulse Rate 55 L 04/04/25 09:01 Respiratory Rate 14 04/04/25 09:01 Blood Pressure 145/87 H 04/04/25 09:01 Pulse Oximetry 98 04/04/25 09:01 Oxygen Delivery Room Air 04/04/25 04:57 <Adriel Snow MD - Last Filed: 04/04/25 12:44> MDM - Chest Pain MDM Narrative Medical decision making narrative: Patient presents with shortness of breath chest pain. The shortness of breath began yesterday and the chest pain began at 3:30 a.m. this morning. It is described as a heaviness/pressure. In the emergency department he is afebrile with vital signs notable for mild tachypnea well as hypertension. HEART SCORE History 2 highly suspicious 1 moderately suspicious 0 slightly suspicious History score [address] depression/elevation not due to LBBB, LVH, or digoxin [address] depression but LBBB, LVH, nonspecific repolarization changes 0 normal ECG score 0 Age 2 >/= 65 1 45-64 0 <45 Age score 1 Risk factors (HTN, hypercholesterolemia, DM, obesity with BMI >30, current smoker or cessation </=3mo), positive fam hx with parent or sibling with CVD before age 65, atherosclerotic disease (prior NJ, PCI/CABG, CVA/TIA, or peripheral arterial disease) 2 >/= 3 risk factors or history of atherosclerotic dz 1 - 1-2 risk factors 0 no known risk factors Risk factor score 2 Initial Troponin 2 >3 times normal limit 1 1-3 times normal limit 0 less than or equal to normal limit Troponin score 0 Total HEART Score 4 CBC unremarkable. Hyperglycemia without anion gap or acidosis. Lipase mildly elevated but not to a degree to suggest pancreatitis. BNP normal. Dimer mildly elevated; although not unilateral edema on my exam but rather bilateral, will proceed with CTA PE. Patient experiences relief of symptoms with administration of 1 NTG (although develops a headache). This is concerning for unstable angina. Patient signed out pending rest of work up. <Cris Jones MD - Last Filed: 04/04/25 08:13> Patient presents with shortness of breath chest pain. The shortness of breath began yesterday and the chest pain began at 3:30 a.m. this morning. It is described as a heaviness/pressure. In the emergency department he is afebrile with vital signs notable for mild tachypnea well as hypertension. HEART SCORE History 2 highly suspicious 1 moderately suspicious 0 slightly suspicious History score [address] depression/elevation not due to LBBB, LVH, or digoxin [address] depression but LBBB, LVH, nonspecific repolarization changes 0 normal ECG score 0 Age 2 >/= 65 1 45-64 0 <45 Age score 1 Risk factors (HTN, hypercholesterolemia, DM, obesity with BMI >30, current smoker or cessation </=3mo), positive fam hx with parent or sibling with CVD before age 65, atherosclerotic disease (prior NJ, PCI/CABG, CVA/TIA, or peripheral arterial disease) 2 >/= 3 risk factors or history of atherosclerotic dz 1 - 1-2 risk factors 0 no known risk factors Risk factor score 2 Initial Troponin 2 >3 times normal limit 1 1-3 times normal limit 0 less than or equal to normal limit Troponin score 0 Total HEART Score 4 CBC unremarkable. Hyperglycemia without anion gap or acidosis. Lipase mildly elevated but not to a degree to suggest pancreatitis. BNP normal. Dimer mildly elevated; although not unilateral edema on my exam but rather bilateral, will proceed with CTA PE. Patient experiences relief of symptoms with administration of 1 NTG (although develops a headache). This is concerning for unstable angina. Patient signed out pending rest of work up. --- Patient care sided to be bowel overnight physician with delta troponin pending. Patient is currently afebrile with no leukocytosis hemoglobin 15.0. D-dimer was mildly elevated at 0.62, CTA was negative for pulmonary embolism. Patient had no significant acute abnormalities on the scene p.m. patient had negative serial troponins. Lipase was mildly elevated at 424. Patient was negative for influenza RSV and for COVID. Patient was updated results of his workup and patient was offered admission for further cardiac evaluation for stable angina. Patient prefers not to be admitted. Case was discussed with Cardiology and Dr. Gonzalez was also comfortable with patient being discharged home having close outpatient follow-up. Patient and family were educated on reasons to return to the emergency department. <Adriel Snow MD - Last Filed: 04/04/25 12:44> Differential Diagnosis Differential diagnosis: Likely stable angina, unstable angina pectoris, atypical chest pain, st elevation myocardial infarction, chest pain, biliary colic and other (Acute viral syndrome pneumonia embolism, acute heart failure) <Cris Jones MD - Last Filed: 04/04/25 08:13> Lab Data Result diagrams: 04/04/25 05:01 04/04/25 05:01 <Cris Jones MD - Last Filed: 04/04/25 08:13> Labs: Lab Results 04/04/25 04/04/25 04/04/25 Range/Units 05:01 07:11 07:53 WBC 8.7 (4.5-10.0) K/mm3 RBC 4.96 (4.6-6.20) M/mm3 Hgb 15.0 (14.0-18.0) g/dL Hct 44.6 (42.0-52.0) % MCV 89.9 (80-100) fl MCH 30.2 (26-34) pg MCHC 33.6 (32-36) g/dl RDW 13.4 (11.5-14.5) % Plt Count 250 (150-375) k/mm3 MPV 10.2 (7.4-10.4) fl Immature Gran % (Auto) 0.3 (0-0.5) % Neut % (Auto) 70.7 (45.5-73.1) % Lymph % (Auto) 21.4 (18.3-44.2) % [place] % (Auto) 5.5 (2.6-8.5) % Eos % (Auto) 1.6 (0-4.4) % Baso % (Auto) 0.5 (0.2-1.2) % Lymph # (Auto) 1.85 (0.9-3.2) K/mm3 [place] # (Auto) 0.5 (0.1-0.6) K/mm3 Eos # (Auto) 0.1 (0-0.3) K/mm3 Baso # (Auto) 0.0 (0.0-0.1) K/mm3 Abs Immat Gran (auto) 0.03 (0.00-0.031) K/mm3 Absolute Neuts (auto) 6.1 (1.3-6.7) K/mm3 Absolute Nucleated RBC 0.000 (0.0-0.012) K/mm3 Nucleated RBC % 0.0 (0.0-0.2) % PT 14.3 (11.1-14.7) Seconds INR 1.1 APTT 26.1 (22.3-36.8) Seconds D-Dimer 0.62 H (<0.48) ug/mL Sodium 139 (137-145) mmol/L Potassium 3.7 (3.4-5.0) mmol/L Chloride 105 (98-107) mmol/L Carbon Dioxide 22 (22-30) mmol/L Anion Gap 12 (4-12) mmol/L BUN 20 (9-20) mg/dL Creatinine 0.65 L (0.7-1.3) mg/dL Estim Creat Clear Calc 116 ml/min Estimated GFR > 60 (59 - ) Glucose 162 H (65-110) mg/dL Calcium 9.1 (8.4-10.2) mg/dL Total Bilirubin 1.4 H (0.2-1.3) mg/dL AST 39 (17-59) U/L ALT 34 (6-50) U/L Alkaline Phosphatase 97 (38-126) U/L Troponin I < 0.012 < 0.012 (0.000-0.034) ng/mL NT-Pro-B Natriuret Pep < 20 (19.9-100) pg/mL Total Protein 7.8 (6.3-8.2) g/dL Albumin 4.7 (3.5-5.1) g/dL Lipase 424 H (23-300) U/L Influenza A (RT-PCR) Negative (Negative) Influenza B (RT-PCR) Negative (Negative) RSV (RT-PCR) Negative (Negative) SARS-CoV-2 RNA (RT-PCR) Negative (Negative) <Cris Jones MD - Last Filed: 04/04/25 08:13> Lab Results 04/04/25 04/04/25 04/04/25 Range/Units 05:01 07:11 07:53 WBC 8.7 (4.5-10.0) K/mm3 RBC 4.96 (4.6-6.20) M/mm3 Hgb 15.0 (14.0-18.0) g/dL Hct 44.6 (42.0-52.0) % MCV 89.9 (80-100) fl MCH 30.2 (26-34) pg MCHC 33.6 (32-36) g/dl RDW 13.4 (11.5-14.5) % Plt Count 250 (150-375) k/mm3 MPV 10.2 (7.4-10.4) fl Immature Gran % (Auto) 0.3 (0-0.5) % Neut % (Auto) 70.7 (45.5-73.1) % Lymph % (Auto) 21.4 (18.3-44.2) % [place] % (Auto) 5.5 (2.6-8.5) % Eos % (Auto) 1.6 (0-4.4) % Baso % (Auto) 0.5 (0.2-1.2) % Lymph # (Auto) 1.85 (0.9-3.2) K/mm3 [place] # (Auto) 0.5 (0.1-0.6) K/mm3 Eos # (Auto) 0.1 (0-0.3) K/mm3 Baso # (Auto) 0.0 (0.0-0.1) K/mm3 Abs Immat Gran (auto) 0.03 (0.00-0.031) K/mm3 Absolute Neuts (auto) 6.1 (1.3-6.7) K/mm3 Absolute Nucleated RBC 0.000 (0.0-0.012) K/mm3 Nucleated RBC % 0.0 (0.0-0.2) % PT 14.3 (11.1-14.7) Seconds INR 1.1 APTT 26.1 (22.3-36.8) Seconds D-Dimer 0.62 H (<0.48) ug/mL Sodium 139 (137-145) mmol/L Potassium 3.7 (3.4-5.0) mmol/L Chloride 105 (98-107) mmol/L Carbon Dioxide 22 (22-30) mmol/L Anion Gap 12 (4-12) mmol/L BUN 20 (9-20) mg/dL Creatinine 0.65 L (0.7-1.3) mg/dL Estim Creat Clear Calc 116 ml/min Estimated GFR > 60 (59 - ) Glucose 162 H (65-110) mg/dL Calcium 9.1 (8.4-10.2) mg/dL Total Bilirubin 1.4 H (0.2-1.3) mg/dL AST 39 (17-59) U/L ALT 34 (6-50) U/L Alkaline Phosphatase 97 (38-126) U/L Troponin I < 0.012 < 0.012 (0.000-0.034) ng/mL NT-Pro-B Natriuret Pep < 20 (19.9-100) pg/mL Total Protein 7.8 (6.3-8.2) g/dL Albumin 4.7 (3.5-5.1) g/dL Lipase 424 H (23-300) U/L Influenza A (RT-PCR) Negative (Negative) Influenza B (RT-PCR) Negative (Negative) RSV (RT-PCR) Negative (Negative) SARS-CoV-2 RNA (RT-PCR) Negative (Negative) <Adriel Snow MD - Last Filed: 04/04/25 12:44> Imaging Data Attestation: I personally reviewed and interpreted this imaging study as follows: < Cris Jones MD - Last Filed: 04/04/25 08:13> My impression: Significant cardiomegaly on my independent interpretation <Cris Jones MD - Last Filed: 04/04/25 08:13> ECG Data EKG #1: Attestation: I personally reviewed and interpreted this ECG as follows: < Cris Jones MD - Last Filed: 04/04/25 08:13> ECG completion date: 04/04/25 <Cris Jones MD - Last Filed: 04/04/25 08:13> ECG completion time: 04:56 <Cris Jones MD - Last Filed: 04/04/25 08:13> Interpretation: Normal sinus rhythm at a rate of 83 beats per minute. OH interval 163. QRS 100. QT/QTC 358/422. Good R-wave progression across the precordial leads. T-wave inversion in 3 but upright in contiguous inferior leads. No other T-wave inversions. Q-waves in inferior leads suggest previous inferior NJ <Cris Jones MD - Last Filed: 04/04/25 08:13> Discharge Plan Discharge Clinical Impression: Chest pain, Shortness of breath, Hyperglycemia, unspecified, Unstable angina <Cris Jones MD - Last Filed: 04/04/25 08:13> Patient Disposition: Still a Patient <Cris Jones MD - Last Filed: 04/04/25 08:13> Condition: Stable <Cris Jones MD - Last Filed: 04/04/25 08:13> Patient Language: Maltese <Cris Jones MD - Last Filed: 04/04/25 08:13> Prescriptions: No Action methocarbamol 750 mg tablet 750 mg PO TID Qty: 90 6RF Taltz Syringe 80 mg/mL syringe 80 mg subcut .4 week Qty: 1 11RF aspirin 81 mg tablet,delayed release (DR/EC) 81 mg PO DAILY amlodipine 10 mg tablet 5 mg PO DAILY ticagrelor 90 mg tablet 90 mg PO Q12H atorvastatin 20 mg tablet 20 mg PO DAILY Qty: 90 3RF levothyroxine 50 mcg tablet 50 mcg PO DAILY Qty: 90 3RF irbesartan 300 mg tablet See Rx Instructions .ROUTE .COMPLEX Qty: 90 0RF Dose Instruction: TAKE 1 TABLET DAILY Rx Instructions: TAKE 1 TABLET DAILY meloxicam 15 mg tablet 15 mg PO DAILY Qty: 90 2RF Rx Instructions: Take with food <Cris Jones MD - Last Filed: 04/04/25 08:13> Follow-up/Referrals: Aníbal Wilburn DO [Primary Care Provider, Internal Medicine] <Cris Jones MD - Last Filed: 04/04/25 08:13>
[2025-04-04] MEDS: NITROGLYCERIN SL 0.4 MG TABLET SUBLINGUAL (06:24)
[2025-04-04 07:17] LABS: NT Pro B Type Natriuretic Pept < 20 pg/mL (19.9-100)
[2025-04-04 07:59] LABS: Influenza A QL RT-PCR Negative (Negative); Influenza B QL RT-PCR Negative (Negative); RSV RNA, RT-PCR Negative (Negative); SARS-CoV-2 RNA PCR Negative (Negative)
--- NOTE | 2025-04-04 08:09 | ECG_ITS ---
Test Date: 2025-04-04 08:15:18 Measurements Intervals [place] Rate: 61 P: 32 WA: 161 QRS: 27 QRSD: 104 T: 10 QT: 410 QTc: 414 Interpretive Statements SINUS RHYTHM INFERIOR MYOCARDIAL INFARCTION , PROBABLY OLD [40+ ms Q WAVE AND/OR ST/T ABNORMALITY IN II/aVF] ABNORMAL ECG Compared to ECG 04/04/2025 04:56:16 No significant changes Electronically Signed On 04-04-2025 12:33:27 CDT by Usman Prado M.D.
[2025-04-04 08:18] LABS: Troponin I < 0.012 ng/mL (0.000-0.034)
== END 2025-04-04 09:25 | disposition home or self-care (01) ==
PROVIDERS: Emergency Provider Student in an Organized Health Care Education/Training Program; PCP Internal Medicine
DX: I25.110 Atherosclerotic heart disease of native coronary artery with unstable angina pectoris (principal); R73.9 Hyperglycemia, unspecified; Z20.822 Contact with and (suspected) exposure to COVID-19; I25.10 Atherosclerotic heart disease of native coronary artery without angina pectoris; I10 Essential (primary) hypertension; E03.9 Hypothyroidism, unspecified; E78.5 Hyperlipidemia, unspecified; M16.9 Osteoarthritis of hip, unspecified; Z95.5 Presence of coronary angioplasty implant and graft; Z96.641 Presence of right artificial hip joint; Z86.0101 Personal history of adenomatous and serrated colon polyps; Z87.891 Personal history of nicotine dependence; Z79.02 Long term (current) use of antithrombotics/antiplatelets; Z79.82 Long term (current) use of aspirin; Z79.899 Other long term (current) drug therapy; Z79.620 Long term (current) use of immunosuppressive biologic; R94.31 Abnormal electrocardiogram [ECG] [EKG]
CPT/HCPCS: 36415; 71046; 71275; 80053; 83690; 83880; 84484; 85025; 85380; 85610; 85730; 87637; 93005; 96372; 99284; A9270; Q9967